=== PATIENT | female | born 1985 | race Caucasian/White ===

== ENCOUNTER → 2019-10-24 14:44 | Outpatient (BNVA) | payer SELFPAY | PROVIDERS: Family Provider Nurse Practitioner; PCP Family Medicine; Visit Provider Family Medicine | DX: R30.0 Dysuria (principal); N39.0 Urinary tract infection, site not specified | CPT/HCPCS: 81003 ==

== ENCOUNTER 2020-06-28 21:16 | Outpatient (CLI) | payer BC, MEDICAID, SELFPAY ==
[2020-06-28 21:16] VITALS: BMI 22.7
[2020-06-28 21:30] VITALS: BP 116/58; PULSE 85; RESP 16; TEMP 36.4
[2020-06-28] MEDS: terbutaline 1 mg/mL INJ 0.25 MG SUBCUT (22:16)
[2020-06-28] MEDS: lactated ringers 1,000 ML 999 ML IV (22:17)
[2020-06-28 23:31] VITALS: BP 105/51; PULSE 88; RESP 16; TEMP 36.7
[2020-06-29] VITALS: BP 105/51; PULSE 88; RESP 16; TEMP 36.7
== END 2020-06-29 00:07 | disposition home or self-care (01) ==
LOC: OPOB 21:16 → OBGYN 21:17
PROVIDERS: PCP Family Medicine; Visit Provider Family Medicine
DX: O26.899 Other specified pregnancy related conditions, unspecified trimester (principal); Z3A.00 Weeks of gestation of pregnancy not specified; N89.8 Other specified noninflammatory disorders of vagina
CPT/HCPCS: 96360; 96372; 99211; J3105

== ENCOUNTER 2020-08-22 05:21 | Inpatient (IN) | payer BC, MEDICAID, SELFPAY ==
[2020-08-22] VITALS (27 sets, daily range): BP systolic 92–129; BP diastolic 48–65; PULSE 69–93; RESP 16–18; TEMP 36.4–37.2; O2SAT 94–99; BMI 25.2
[2020-08-22] MEDS: lactated ringers 1,000 ML 999 ML IV ×2 (05:56→07:07)
[2020-08-22 05:59] LABS: Basophils # 0.1 10^3/uL (0.0-0.1); Basophils % 0.5 %; Eosinophils # 0.2 10^3/uL (0.0-0.8); Eosinophils % 1.5 %; Hematocrit 35.3 % (37.0-47.0); Hemoglobin 11.5 g/dL (11.5-15.3); Lymphocytes # 1.6 10^3/uL (0.8-4.8); Lymphocytes % 13.7 %; Mean Corpuscular HGB Conc 32.6 g/dL (30.0-36.0); Mean Corpuscular Volume 92.2 fL (81-99); Mean Platelet Volume 9.8 fL (7.4-10.4); Monocytes # 0.9 10^3/uL (0.2-0.9); Monocytes % 7.7 %; Neutrophils # 8.57 10^3/uL (1.8-7.7); Neutrophils % 75.6 %; Nucleated Red Blood Cells % 0 %; Platelet Count 281 10^3/cmm (130-400); Red Blood Count 3.83 10^6/uL (4.1-5.3); Red Cell Distribution Width 13.3 % (12.1-15.1); White Blood Count 11.3 10^3/uL (4.0-10.0)
[2020-08-22] MEDS: famotidine 20 mg/2 mL INJ IVP (07:06)
[2020-08-22] MEDS: metoclopramide 5 mg/mL SDV 2 mL 10 MG IVP (07:06)
[2020-08-22] MEDS: citric acid-sodium citrate 30 mL UDC PO (07:07)
--- NOTE | 2020-08-22 07:14 | P.ANESASSM_ITS ---
Pre-Anesthetic Assessment Pre-Anesthetic Assessment: Height/Weight: Height 1.7 m Weight 73.028 kg Temp Pulse BP 99.0 F 85 121/64 08/22/20 05:45 08/22/20 06:44 08/22/20 06:44 Preop Diagnosis: placenta previa Proposed Procedure: Operation Date: 08/22/20 07:30 Proposed Procedures p Section With Tubal(Not Applicable) - Estrellita Luther MD Familial anesthetic complications: none Was Beta Cherry taken within 24 hours: N/A Was Clonidine taken within 24 hours: N/A Last intake: Intake Last Liquid Date 08/21/20 Last Liquid Time 21:00 Last Solid Date 08/21/20 Last Solid Time 19:30 Social: Social History: No alcohol and No tobacco Exam: Pre-Anes Outpt Exam: alert, oriented x 3, clear to auscultation bilaterally and regular rate & rhythm Airway: Submandibular: WNL Cervical ROM: WNL MP: 1 Dentition: Full History/ROS: No significant history except as noted Pulmonary: Pulmonary: None reported CV/HEM: CV/HEM: None reported : : None reported Hepatic: Hepatic: None reported Metabolic: Metabolic: None reported Musc/skel: Musc/skel: None reported Neuropsych: Neuropsych: None reported Anesthetic Plan: ASA status: 2 Anesthesia: Eval. for regional block Risk of > 500 ml blood loss (7ml/kg in children): Yes, adequate IV access and fluids planned Other Pertinent Information: C/S for placenta previa per patient. Meds/Allergies Current Medications: Current Medications Generic Name Dose Route Start Last Admin Trade Name Freq PRN Reason Stop Dose Admin Lactated Ringer's 1,000 mls @ 125 m ls/hr 08/22/20 05:45 08/22/20 07:07 Lactated Ringers IV 999 mls/hr .Q8H BONITA Administration PFSH Anesthesia PFSH: Social History Smoking and tobacco status: never smoked Female Reproductive History: : 4 Data Anesthesia CBC & Chem 7: 08/22/20 05:48 Other Labs: Laboratory Results - last 48 hr 08/22/20 05:48 WBC 11.3 H RBC 3.83 L Hgb 11.5 Hct 35.3 L MCV 92.2 MCH 30.0 MCHC 32.6 RDW 13.3 Plt Count 281 MPV 9.8 Neut % (Auto) 75.6 Lymph % (Auto) 13.7 [place] % (Auto) 7.7 Eos % (Auto) 1.5 Baso % (Auto) 0.5 Neut # (Auto) 8.57 H Lymph # (Auto) 1.6 [place] # (Auto) 0.9 Eos # (Auto) 0.2 Baso # (Auto) 0.1 Nucleated RBC % (auto) 0 Nucleated RBCs # 0.0 Cardiac Studies: No Data to Display
--- NOTE | 2020-08-22 08:50 | PM.OPHPUD ---
Labor & Delivery H&P Update Date of Procedure: August 22, 2020 Date H&P Performed: 08/14/20 Admission Diagnosis: Preop diagnosis: placenta previa Planned procedure: Operation Date: 08/22/20 07:30 Proposed Procedures p Section With Tubal(Not Applicable) - Estrellita Luther MD Related Problem List Diagnoses (1) with 37 weeks completed gestation: (2) Partial placenta previa nos or without hemorrhage, third trimester: (3) Encounter for sterilization:
--- NOTE | 2020-08-22 08:54 | PM.OP ---
Operative Report Date of procedure: August 22, 2020 Pre-op Diagnosis: placenta previa Post-op diagnosis: same Procedure Done: Primary low transverse section with bilateral tubal ligation Specimens removed/disposition: Vertex female weight 7 pounds 9 ounces Apgars 9 and 10 Surgeon: Estrellita Luther MD Anesthesia: Other (Spinal) Estimated blood loss (mL): 400 IV fluids (mL): 1,300 Urine output (mL): 300 Complications: None Condition: stable Disposition: floor Procedure: After informed consent the patient was taken to the OR where spinal anesthesia was administered. She was then prepped and draped in normal sterile fashion in dorsal supine position with a left lateral tilt. After adequate spinal anesthesia was verified a Pfannenstiel skin incision was made and carried through sharply to the underlying layer of fascia. The fascial incision was then extended laterally using the Mayos. The fascia was grasped with Ana clamps and the underlying rectus muscles were dissected off taking care to avoid injury to the underlying tissue. The peritoneum was then entered bluntly with a finger and the incision site was manually stretched. The bladder blade was inserted and the vesicouterine peritoneum was identified and entered sharply using the Metzenbaums. The bladder flap was created digitally. The bladder blade was then reinserted. Uterine incision was made in a transverse fashion in the lower uterine segment. Amniotic rupture of membranes was performed digitally. There was a copious amount of clear fluid. The was delivered atraumatically with bulb suction of the mouth and naris at delivery. The cord was clamped and cut and the was handed to the waiting pediatric nurse. Cord blood was obtained. The placenta was delivered grossly intact and normal to inspection. The uterus was then exteriorized from the abdomen and a dry sponge was used to clear the uterus of clots and debris. Uterine incision was then repaired using 0 chromic in a running locked fashion. A second layer of the same suture was used in an imbricating manner. Good hemostasis was obtained. The right fallopian tube was then grasped with a Chey and a proximal portion of the tube was ligated and excised. Cut portions of the tube were coagulated using the Bovie. Specimen was sent to pathology. Tubal ostia were visible. The left fallopian tube was then grasped with a Chey and a midportion of the tube was ligated and excised. The cut portions of the tube were coagulated using the Bovie. Specimen was sent to pathology. Tubal ostia were visible. The uterus was then gently returned to the abdomen. Irrigation was used to clear the gutters of clots and debris and the uterine incision was reinspected for hemostasis. There was a very small ooze from the incision site and this was tied off using 0 chromic and 1 [id number] suture. After hemostasis was verified the peritoneum was then reapproximated using 4-0 Vicryl in a running fashion. The rectus muscles were gently reapproximated using 1 [id number] suture of 4-0 Vicryl. The subfascial tissue was inspected for hemostasis. The fascia was then reapproximated using 0 Vicryl in a running fashion. The subcutaneous tissue was irrigated and any small bleeders were coagulated using the Bovie. The subcutaneous tissue was then reapproximated using 4-0 Vicryl in a running fashion. The skin was then reapproximated using 4-0 Vicryl on a Vel needle. Steri-Strips and a pressure bandage were applied and patient went to recovery in stable condition Sponge instrument and needle counts were correct. Associated Problem List Diagnoses (1) Encounter for sterilization: (2) Partial placenta previa nos or without hemorrhage, third trimester: (3) with 37 weeks completed gestation:
--- NOTE | 2020-08-22 10:43 | PC.NURSE ---
Pt ambulated from OB 13 to OR 1 at 0730. Pt tolerated well.
--- NOTE | 2020-08-22 10:43 | PC.NURSE ---
Pt transferred from OR 1 to PP room 7 via bed. Pt tolerated well.
[2020-08-22] MEDS: dextrose 5%-lactated ringers 1,000 ML 125 ML IV (13:18)
[2020-08-22] MEDS: HYDROcodone-acetaminophen 5-325 mg Tablet PO (15:58)
[2020-08-22] MEDS: ketorolac 30 mg/mL INJ IVP ×2 (15:59→22:12)
--- NOTE | 2020-08-22 16:23 | PC.NURSE ---
[id number] This inspector automatic typewriter assisted pt up to chair. Pt tolerated well.
[2020-08-22] MEDS: docusate sodium 100 mg Capsule PO (18:34)
[2020-08-22] MEDS: ferrous sulfate EC 325 mg Tablet PO (18:34)
[2020-08-22 21:41] LABS: Hematocrit 32.6 % (37.0-47.0); Hemoglobin 10.5 g/dL (11.5-15.3); Mean Corpuscular HGB Conc 32.2 g/dL (30.0-36.0); Mean Corpuscular Hemoglobin 29.5 pg (28.0-34.0); Mean Corpuscular Volume 91.6 fL (81-99); Mean Platelet Volume 10.5 fL (7.4-10.4); Platelet Count 252 10^3/cmm (130-400); Red Blood Count 3.56 10^6/uL (4.1-5.3); Red Cell Distribution Width 13.4 % (12.1-15.1); White Blood Count 12.8 10^3/uL (4.0-10.0)
--- NOTE | 2020-08-23 01:50 | PC.NURSE ---
on 08/22/20 at 2200 patient was encouraged to ambulate. patient opted to ambulate in room and tolerated well.
[2020-08-23 03:29] VITALS: BP 106/66; PULSE 74; RESP 16; TEMP 36.8; O2SAT 97
[2020-08-23] MEDS: ketorolac 30 mg/mL INJ IVP (04:51)
[2020-08-23] MEDS: prenatal vitamin Capsule 1 CAP PO (09:29)
[2020-08-23] MEDS: docusate sodium 100 mg Capsule PO ×2 (09:29→18:37)
[2020-08-23] MEDS: ferrous sulfate EC 325 mg Tablet PO ×2 (09:29→18:37)
[2020-08-23 10:15] VITALS: BP 102/65; PULSE 81; RESP 16; TEMP 36.8; O2SAT 97
[2020-08-23] MEDS: HYDROcodone-acetaminophen 5-325 mg Tablet PO ×2 (10:23→14:43)
[2020-08-23] MEDS: ibuprofen 800 mg tablet PO ×2 (16:10→20:10)
[2020-08-23 16:11] VITALS: BP 103/62; PULSE 80; RESP 16; TEMP 36.8; O2SAT 98
--- NOTE | 2020-08-23 19:12 | P.PN_ITS ---
[facility] Subjective Subjective: Interval history: Postop day #1 primary section with bilateral tubal ligation. She is doing well. She has not passed any flatus but she has good bowel sounds and she is feeling hungry. Her pain is controlled with oral medication. She has minor swelling but no complaints Labor: Amniotic Membrane Status: Intact Monitor Mode: External Contraction Pattern: Occasional Vitals/I&O/Wt Last Vital Signs Temp 98.2 F 08/23/20 16:11 Pulse 80 08/23/20 16:11 Resp 16 08/23/20 16:11 BP 103/62 08/23/20 16:11 Pulse Ox 98 08/23/20 16:11 08/23/20 08/23/20 08/23/20 06:59 14:59 22:59 Intake Total 1500 / 1500 Output Total 500 / 3275 1200 / 1200 Balance -500 / 957.45 -1200 / -1200 1500 / 300 Weight last 48 hrs Weight 161 lb Weight 161 lb Physical Exam Const: COMMON NORMALS: no acute distress and healthy appearing GENERAL APPEARANCE: cooperative and comfortable HENMT: COMMON NORMALS: normocephalic HEAD & SCALP: normocephalic Chest: COMMONS NORMALS: normal inspection of the chest Resp: COMMON NORMALS: normal respiratory effort GI: COMMON NORMALS: Soft to palpation INSPECTION: Yes other (Incision clean dry and intact) AUSCULTATION: Yes normoactive bowel sounds PALPATION: Yes Soft to palpation, Yes Tenderness to palpation present (GI) (Appropriate postoperative), No Guarding due to palpation present (GI) and No Rigid due to palpation Urinary Catheter Management^: Prakash: Cath Placed During This Visit: yes, but has since been removed by the nurse Reason for Continuing Indwelling Catheter: Perioperative Use in Selected Surgeries Urinary Catheter Date of Insertion: 08/22/20 Urinary Catheter Time of Insertion: 07:44 Date Urinary Catheter Removed: 08/22/20 Time Urinary Catheter Discontinued: 22:00 Data : 08/22/20 21:00 A&P Assessment and plan (1) Status post primary low transverse section: Postop day #1 doing well. Since she has good bowel sounds and is feeling very hungry I am going to go ahead and allow her to eat. She was advised to stop immediately though if she experienced any nausea or abdominal pain. She has been up walking. Status: Acute (2) Encounter for sterilization: Status: Acute (3) Partial placenta previa nos or without hemorrhage, third trimester: Status: Acute (4) with 37 weeks completed gestation: Status: Acute Attestations Medical Necessity Statement*: Routine and postoperative care Coding Level of Care Code Acute Cigarette And Filter Chief Inspector for Chg Fwd Diagnoses Status post primary low transverse section Z98.891 Encounter for sterilization Z30.2 Partial placenta previa nos or without hemorrhage, third trimester O44.23 with 37 weeks completed gestation Z3A.37
[2020-08-23 20:13] VITALS: BP 100/64; PULSE 84; RESP 16; TEMP 36.7
[2020-08-24 03:30] VITALS: BP 108/67; RESP 14; TEMP 36.7
[2020-08-24] MEDS: prenatal vitamin Capsule 1 CAP PO (07:29)
[2020-08-24] MEDS: HYDROcodone-acetaminophen 5-325 mg Tablet PO (07:29)
[2020-08-24] MEDS: docusate sodium 100 mg Capsule PO (08:27)
[2020-08-24] MEDS: ibuprofen 800 mg tablet PO (08:27)
--- NOTE | 2020-08-24 09:47 | P.DS_ITS ---
Discharge Providers ORTHO/PROSTHETIC AIDE Date of Admission: 08/22/20 05:21 Date of Discharge: 08/24/20 Attending Provider at Admission: Estrellita Luther MD Attending Provider at Discharge: Estrellita Luther MD Primary Care Provider: Lashon Andino MD Diagnoses at Discharge Discharge Diagnosis (1) Status post primary low transverse section: Status: Acute (2) Encounter for sterilization: Status: Acute (3) Partial placenta previa nos or without hemorrhage, third trimester: Status: Acute (4) with 37 weeks completed gestation: Status: Acute Reason for Visit Reason for Visit: csection Hospital Course Hospital Course This is a 35-year-old G4 now P4 who was admitted for a scheduled primary section secondary to partial placenta previa. On the last reliable ultrasound the placental edge was within 1.4 cm of the cervical os. She underwent a primary low transverse section with bilateral tubal ligation. She did very well postoperatively. On day #2 she was ambulating, passing flatus, tolerating a regular diet, and had good pain control on oral medications. Information Peripartum Data: Delivery Method: Physical Exam Const: COMMON NORMALS: no acute distress GENERAL APPEARANCE: cooperative and comfortable HENMT: COMMON NORMALS: normocephalic and atraumatic HEAD & SCALP: normocephalic and atraumatic Resp: COMMON NORMALS: normal respiratory effort GI: COMMON NORMALS: Soft to palpation (Fundus firm U- 2) AUSCULTATION: Yes normoactive bowel sounds PALPATION: Yes Soft to palpation (Fundus firm U- 2), Yes Tenderness to palpation present (GI) (Minimal postoperative), No Guarding due to palpation present (GI) and No Rigid due to palpation Extremity: COMMON NORMALS: no calf tenderness GENERAL: Yes edema Psych: COMMON NORMALS: mental status grossly normal Urinary Catheter Management^: Prakash: Cath Placed During This Visit: yes, but has since been removed by the nurse Reason for Continuing Indwelling Catheter: Perioperative Use in Selected Surgeries Urinary Catheter Date of Insertion: 08/22/20 Urinary Catheter Time of Insertion: 07:44 Date Urinary Catheter Removed: 08/22/20 Time Urinary Catheter Discontinued: 22:00 Discharge Data Data Completed and Pending: Pending at discharge Category Date Time Status Pathology: Surgic al [PTH] Routine Pth 08/22/20 09:11 Received Vitals: Last Vital Signs Temp 98.1 F 08/24/20 03:30 Pulse 84 08/23/20 20:13 Resp 14 08/24/20 03:30 BP 108/67 08/24/20 03:30 Pulse Ox 98 08/23/20 16:11 Discharge Plan Discharge Patient Disposition: Home Condition: Stable Prescriptions: New hydrocodone-acetaminophen 5-325 mg Tablet 1 - 2 tab PO Q4H PRN (Reason: Moderate To Severe Pain) Qty: 15 RF: 0 DOK 100 mg Capsule 100 mg PO BID Qty: 60 RF: 0 Continued + DHA 1 tab PO DAILY RF: 0 Discharge Orders: Discharge Order (Routine); Ordered 08/24/20 Ordered By: Estrellita Luther Referrals: Estrellita Luther MD [Physician] - 2 weeks Discharge Diet: Usual diet Discharge Activity: Limit activity as instructed Patient Instructions: Vitamins (By mouth), OB - Christian/Homa, OB Discharge Report, OB Proud Parent Packet Discharge Attestations ORTHO/PROSTHETIC AIDE Time Spent in Discharge Care*: less than 30 min Coding Level of Care Code Acute Spot Billing Clerk for Chg Fwd Diagnoses Status post primary low transverse section Z98.891 Encounter for sterilization Z30.2 Partial placenta previa nos or without hemorrhage, third trimester O44.23 with 37 weeks completed gestation Z3A.37
== END 2020-08-24 10:45 | disposition home or self-care (01) | DRG 785 ==
PROVIDERS: Admitting Provider Family Medicine; PCP Family Medicine; Visit Provider Family Medicine
PROC: 10D00Z1 Extraction of Products of Conception, Low, Open Approach (ICD-10-PCS; CPT 59514; principal; 2020-08-22 07:30)
DX: O44.23 Partial placenta previa NOS or without hemorrhage, third trimester (principal); Z3A.37 37 weeks gestation of pregnancy; Z37.0 Single live birth; Z30.2 Encounter for sterilization
CPT/HCPCS: 36415; 51702; 58611; 59025; 59409; 85025; 85027; 88302; J0690; J1885; J2274; J2370; J2405; J2765; J3490; J7030

== ENCOUNTER 2025-01-31 02:24 | Emergency (ER) | payer MEDICAID, SELFPAY ==
[2025-01-31 02:26] VITALS: BP 119/60; PULSE 107; RESP 16; TEMP 37.1; O2SAT 96; BMI 20.7
[2025-01-31 02:53] LABS: Hematocrit 39.7 % (36-47); Hemoglobin 13.20 g/dL (11.27-16.99); Mean Corpuscular HGB Conc 33.2 g/dL (30-55); Mean Corpuscular Hemoglobin 29.4 pg (27-33); Mean Corpuscular Volume 88.4 fl (85-98); Nucleated Red Blood Cells % 0 %; Platelet Count 237 10^3/cmm (157-399); Red Blood Count 4.49 10^6/uL (3.85-5.65); White Blood Count 6.57 10^3/uL (3.29-11.43)
[2025-01-31] MEDS: morphine 4 mg/mL SDV 1 mL IVP (03:02)
[2025-01-31 03:05] LABS: Alanine Aminotransferase 22 U/L (0-33); Albumin Level 4.1 g/dL (3.5-5.2); Alkaline Phosphatase 73 U/L (35-105); Anion Gap 18.6 (5-19); Aspartate Amino Transferase 23 U/L (0-32); Blood Urea Nitrogen 11 mg/dL (6-20); Calcium 9.1 mg/dL (8.5-10.5); Carbon Dioxide 21 mmol/L (22-29); Chloride 100 mmol/L (98-107); Creatinine Clr Calc Pharmacy 92.5805; Globulin 3.5 g/dL (1.3-4.6); Glucose 99 mg/dL (65-115); Osmolality Calculated 281 mOsm/kg (285-295); Potassium 3.6 mmol/L (3.5-5.1); Sodium 136 mmol/L (136-145); Total Protein 7.6 g/dL (6.6-8.7)
[2025-01-31 03:18] LABS: Slide Review Slide Review Perform
--- NOTE | 2025-01-31 03:35 | ECG_ITS ---
[facility]: 2025-[facility]31 Pat Name: Emiliana Lucio Department: Room: Gender: Female Flexo Press Operator: : 1985 Requested By: Diogo Tesfaye Order Number: [id number] Curtis MD: Anup Kaur M.D. Measurements Intervals [place] Rate: 88 P: 71 [place]: 108 QRS: 78 QRSD: 78 T: -14 QT: 334 QTc: 406 Interpretive Statements SINUS RHYTHM WITH SHORT [place] INTERVAL NONSPECIFIC ST & T-WAVE ABNORMALITY No previous ECG available for comparison Electronically Signed On 02-02-2025 13:13:16 CDT by Anup Kaur M.D. [email or web address]
--- NOTE | 2025-01-31 03:37 | ED_ITS ---
HPI - Extremity Problem 2 General: Chief complaint: Extremity Injury, Upper Stated complaint: Left Arm Sharp Pain Time Seen by Provider: 01/31/25 02:31 History of Present Illness: 39 yo F with recent rhinovirus and facia l cellulitis presents with left arm pain radiating to the hand with new numbness and weakness. Pain began as a muscle ache earlier, was intermittent through the day, then worsened and woke pt from sleep. Reports inability to make a fist due to decreased feeling and weakness in the left hand. Denies redness or warmth of the arm; notes blotchy dots on arm similar to prior allergic reactions. Had fevers recently with sinus symptoms; previously had aching in posterior legs thought related to fever. Seen at urgent care and [facility] in recent days; told rhinovirus and facial cellulitis; on antibiotics and an allergy medicine, possibly prednisone, for almost a week. Took acetaminophen ~20 min before arrival; cannot take ibuprofen (causes breakout). Pain rated 7?8/10 earlier, now ~7/10. No heavy exertion; did light cleaning at work. Left-handedness denied; pt is right-handed. Pt appears anxious and tearful. Related Data Previous Rx's ?Medication ?Instructions ?Recorded cetirizine 10 mg tablet (Allergy 10 mg PO DAILY PRN al leslie 01/25/25 Relief (cetirizine)) symptoms #30 tabs sulfamethoxazole 800 1 tab PO BID 7 days #14 tabs 01/25/25 mg-trimethoprim 160 mg tablet (Bactrim DS) Allergies Allergy/AdvReac Type Severity Reaction Status Date / Time acetaminophen (From Excedrin Allergy ALGY-Hives Verified 01/25/25 09:35 Migraine) aspirin (From Excedrin Allergy ALGY-Hives Verified 01/25/25 09:35 Migraine) caffeine (From Excedrin Allergy ALGY-Hives Verified 01/25/25 09:35 Migraine) PFSH ED 2 PFSH: Social History Smoking and tobacco/nicotine status: never used tobacco/nicotine Physical Exam 2 Const: COMMON NORMALS: no acute distress HENMT: COMMON NORMALS: normocephalic and atraumatic HEAD & SCALP: n ormocephalic and atraumatic Eye: COMMON NORMALS: Equal, round and reactive pupils present, EOMs intact bilaterally and no scleral icterus PUPIL: Yes Equal, round and reactive pupils present Resp: COMMON NORMALS: normal respiratory effort and No retractions Cardio: COMMON NORMALS: regular rate, regular rhythm and No murmurs present (Cardio) RATE: regular rate RHYTHM: regular rhythm GI: COMMON NORMALS: Normal to inspection, nondistended, normoactive bowel sounds present, Soft to palpation and non-tender PALPATION: Yes Soft to palpation Neuro: OTHER: Decreased meteorologist liaison strength in the left hand vs right; sensation intact but decreased in left hand vs contralateral. Skin: NARRATIVE SKIN EXAM: Sparse maculopapular rash diffusely from head to toe. No focal area of redness or warmth in the area of the left arm weakness or paresthesia or pain. Course 2 Vital Signs: Vital signs: Vital Signs Temperature 98.7 F 01/31/25 02:26 Pulse Rate 107 H 01/31/25 02:26 Respiratory Rate 16 01/31/25 02:26 Blood Pressure 119/60 01/31/25 02:26 Pulse Oximetry 96 01/31/25 02:26 Oxygen Delivery Me thod Room Air 01/31/25 02:26 MDM - Extremity (Nontraumatic) Medical Decision Making EKG: Time?0335?sinus rhythm, rate of 88, no ST segment elevation or depression, TN interval 108 ms no delta wave, T waves inverted in leads V3 and V4. QTc = 380 Medical Records 39 yo F with recent rhinovirus and facial cellulitis presents with throbbing left arm pain radiating to the hand, new numbness, and decreased meteorologist liaison. Pain woke pt from sleep; no redness or warmth. Prior leg aches with fever. Took acetaminophen; cannot take ibuprofen. PE: anxious, focal lateral upper arm tenderness, no erythema/warmth/swelling, decreased left meteorologist liaison, sensation intact but decreased left vs right. Stroke considered less likely given predominant pain and focal reproducible tenderness; typical stroke presents painless with weakness/numbness. Myocardial infarction thought very low risk given age and reproducible musculoskeletal pain. Possible peripheral nerve compression causing weakness and sensory change. Viral myalgias discussed. Blood clot after IV insertion mentioned but location and lack of swelling/erythema make this less likely. Muscle tear mentioned as a less common possibility. EKG and blood work are reassuring. After receiving a single dose of morphine, meteorologist liaison strength has improved and paresthesia resolved. She has full strength in the left hand and. Pain is resolved as well. I suspect rash to be virally mediated given recent diagnosis of rhinovirus. I do not suspect stroke or any other emergent process warranting further workup. Lab Data 01/31/25 02:39 01/31/25 02:39 Laboratory Results WBC 6.57 10^3/uL (3.29-11.43) 01/31/25 02:39 RBC 4.49 10^6/uL (3.85-5.65) 01/31/25 02:39 Hgb 13.20 g/dL (11.27-16.99) 01/31/25 02:39 Hct 39.7 % (36-47) 01/31/25 02:39 MCV 88.4 fl (85-98) 01/31/25 02:39 MCH 29.4 pg (27-33) 01/31/25 02:39 MCHC 33.2 g/dL (30-55) 01/31/25 02:39 RDW 12.0 % (12.1-15.1) L 01/31/25 02:39 Plt Count 237 10^3/cmm (157-399) 01/31/25 02:39 MPV 9.8 fL (7.4-10.4) 01/31/25 02:39 Neut % (Auto) 71.8 % 01/31/25 02:39 Lymph % (Auto) 15.5 % 01/31/25 02:39 [place] % (Auto) 9.1 % 01/31/25 02:39 Eos % (Auto) 2.9 % 01/31/25 02:39 Baso % (Auto) 0.2 % 01/31/25 02:39 Neut # (Auto) 4.72 10^3/uL (1.8-7.7) 01/31/25 02:39 Lymph # (Auto) 1.0 10^3/uL (0.8-4.8) 01/31/25 02:39 [place] # (Auto) 0.6 10^3/uL (0.2-0.9) 01/31/25 02:39 Eos # (Auto) 0.2 10^3/uL (0.0-0.8) 01/31/25 02:39 Baso # (Auto) 0.0 10^3/uL (0.0-0.1) 01/31/25 02:39 Nucleated RBC % (auto) 0 % 01/31/25 02:39 Nucleated RBCs # 0.0 /100WBC 01/31/25 02:39 ESR 31 mm/hr (0-15) H 01/31/25 02:39 Sodium 136 mmol/L (136-145) 01/31/25 02:39 Potassium 3.6 mmol/L (3.5-5.1) 01/31/25 02:39 Chloride 100 mmol/L (98-107) 01/31/25 02:39 Carbon Dioxide 21 mmol/L (22-29) L 01/31/25 02:39 Anion Gap 18.6 (5-19) 01/31/25 02:39 BUN 11 mg/dL (6-20) 01/31/25 02:39 Creatinine 0.8 mg/dL (0.5-0.9) 01/31/25 02:39 GFR Calculation 80.7 mL/min (90-130) L 01/31/25 02:39 Glucose 99 mg/dL (65-115) 01/31/25 02:39 Calculated Osmolality 281 mOsm/kg (285-295) L 01/31/25 02:39 Calcium 9.1 mg/dL (8.5-10.5) 01/31/25 02:39 Total Bilirubin 0.3 mg/dL (0.15-1.2) 01/31/25 02:39 AST 23 U/L (0-32) 01/31/25 02:39 ALT 22 U/L (0-33) 01/31/25 02:39 Alkaline Phosphatase 73 U/L (35-105) 01/31/25 02:39 C-Reactive Protein 10.5 mg/L (0.0-4.9) H 01/31/25 02:39 Total Protein 7.6 g/dL (6.6-8.7) 01/31/25 02:39 Albumin 4.1 g/dL (3.5-5.2) 01/31/25 02:39 Globulin 3.5 g/dL (1.3-4.6) 01/31/25 02:39 No radiology studies performed this visit Discharge Plan Discharge Patient Disposition: Home Clinical Impression: Peripheral nerve palsy, Arm pain, left Condition: Stable Prescriptions: No Action sulfamethoxazole-trimethoprim [Bactrim DS] 800-160 mg tablet 1 tab PO BID 7 Days Qty: 14 0RF cetirizine [Allergy Relief (cetirizine)] 10 mg tablet 10 mg PO DAILY PRN (Reason: allergy symptoms) Qty: 30 0RF Discharge Orders: Discharge ED (Routine); Ordered 01/31/25 Ordered By: Diogo Delong Referrals: Lashon Andino MD [Primary Care Provider, Family Practice] Discharge Diet: Usual diet Discharge Activity: Increase activity as tolerated Patient Instructions: Patient Portal & Nicola Instructions Activity Restrictions/Additional Instructions: Your EKG and blood work are reassuring. Weakness improved with pain control. I strongly suspect that there is an inflammatory process causing both your rash and muscle aches and that inflammation adjacent to the nerves in the left arm caused the weakness and relative numbness of the hand. This should all get better with time without need for any specific intervention. Stand Alone Forms: Work/School Release Print Language: Bruneian Coding Level of Care Code ED Allocations Clerk for Vanessa Tony
[2025-01-31 04:09] VITALS: BP 107/52; PULSE 78; RESP 16; O2SAT 95
== END 2025-01-31 04:16 | disposition home or self-care (01) ==
PROVIDERS: Emergency Provider Student in an Organized Health Care Education/Training Program; PCP Family Medicine
DX: G64 Other disorders of peripheral nervous system (principal); M79.602 Pain in left arm
CPT/HCPCS: 80053; 85025; 85651; 86140; 93005; 96374; 96375; 99284; J1100; J2270